=== PATIENT | female | born 1950 | race Caucasian/White ===

== ENCOUNTER 2023-09-13 08:59 | Emergency (ER) | payer MEDICARE, MEDICAID ==
[~2023-09-13] VITALS: Ht 157.5 cm; Wt 55.3 kg
[2023-09-13 09:27] VITALS: TEMP 98.4
[2023-09-13] MEDS ORDERED: normal saline 1000ML IV soln IV ONE (09:50)
--- NOTE | 2023-09-13 10:41 | NUR ---
Patient back from ct.
[2023-09-13] MEDS ORDERED: iohexol 350MG/ML 100ml bottle IV ONE (10:48)
--- NOTE | 2023-09-13 10:50 | NUR ---
Stroke alert cancelled by Dr. Lutz.Sabi/stroke RN at bedside.
[2023-09-13 10:54] LABS: BASOPHILS % (AUTO) 0.6 % (0-1); EOSINOPHILS # (AUTO) 0.1 X10'3 (0-0.9); EOSINOPHILS % (AUTO) 0.9 % (0-6); HEMATOCRIT 40.1 % (35.0-45.0); HEMOGLOBIN 13.5 g/dl (12.0-16.0); LYMPHOCYTES # (AUTO) 1.3 X10'3 (1.1-4.8); LYMPHOCYTES % (AUTO) 16.9 % (21-51); MEAN CORPUSCULAR HEMOGLOBIN 30.1 PG (27.0-31.0); MEAN CORPUSCULAR HGB CONC 33.7 g/dL (33.0-36.5); MEAN CORPUSCULAR VOLUME 89.3 FL (78-98); MEAN PLATELET VOLUME 8.1 FL (7.4-10.4); MONOCYTES # (AUTO) 0.5 X10'3 (0-0.9); MONOCYTES % (AUTO) 6.8 % (2-12); NEUTROPHILS # (AUTO) 5.9 X10'3 (1.8-7.7); NEUTROPHILS % (AUTO) 74.8 % (42-75); PLATELET COUNT 275 X10'3 (140-440); RED CELL DISTRIBUTION WIDTH 13.9 % (11.5-14.5); WHITE BLOOD COUNT 7.9 X10'3 (4.5-11.0)
[2023-09-13 11:06] LABS: BILIRUBIN,URINE NEGATIVE (Neg); CLARITY,URINE SLIGHTLY CLOUDY (Clear); COLOR,URINE YELLOW (Yellow); GLUCOSE, URINE NEGATIVE (Neg); KETONES,URINE 40 mg/dl (Neg); LEUKOCYTE ESTERASE ,URINE NEGATIVE (Neg); NITRITES, URINE NEGATIVE (Neg); OCCULT BLOOD,URINE TRACE-INTACT (Neg); PROTEIN,URINE NEGATIVE (Neg); UROBILINOGEN,URINE 0.2 E.U/dL (0.2-1.0)
[2023-09-13 11:09] LABS: PROTHROMBIN TIME 10.8 SECONDS (9.0-12.0)
[2023-09-13 11:15] LABS: UA COLLECTION TYPE CLN CATCH MIDSTREAM
[2023-09-13 11:19] LABS: SQUAMOUS EPITHELIAL CELL,UR FEW /LPF (FEW)
[2023-09-13 11:20] LABS: BACTERIA,URINE NONE SEEN /HPF (Neg); WBC,URINE 0-4 /HPF (0-4)
[2023-09-13] MEDS ORDERED: dextrose 5%-1/2 normal saline 1,000 ML IV ONE (11:20)
[2023-09-13 12:01] LABS: ALANINE AMINOTRANSFERASE 23 U/L (12-78); ALBUMIN 3.4 G/DL (3.4-5.0); ALBUMIN/GLOBULIN RATIO 0.9 (1.1-1.5); ALKALINE PHOSPHATASE 62 IU/L (46-116); ANION GAP 10 (8-16); ASPARTATE AMINO TRANSFERASE 14 U/L (10-37); BILIRUBIN,TOTAL 0.4 MG/DL (0.1-1.0); BLOOD UREA NITROGEN 13 MG/DL (7-18); BUN/CREATININE RATIO 16.7 (10.0-20.0); CHLORIDE 106 MMOL/L (99-107); CREATININE 0.78 MG/DL (0.40-0.90); GLUCOSE 96 MG/DL (70-104); POTASSIUM 3.7 MMOL/L (3.5-5.1); SODIUM 140 MMOL/L (135-145); TOTAL CARBON DIOXIDE 24.5 MMOL/L (24-32); eCRCL 52 ML/MIN; eGFR 73 ML/MIN
[2023-09-13 12:07] LABS: MAGNESIUM 1.8 MG/DL (1.5-2.4); PRO BRAIN NATRIURETIC PEPTIDE 198 PG/ML (0-125)
[2023-09-13 12:16] LABS: THYROID STIMULATING HORMONE < 0.01 ulU/ml (0.34-4.50)
--- NOTE | 2023-09-13 13:30 | NUR ---
Call to caregiver at this time, states she is on her way.
[2023-09-13 13:35] VITALS: BP 141/72; PULSE 107; RESP 25; O2SAT 98
--- NOTE | 2023-09-13 20:51 | NUR ---
PATIENT NOT DISCHARGED BY STAFF ON DAY SHIFT - REMOVED FROM ED BOARD.
== END 2023-09-13 20:51 | disposition home or self-care (01) ==
LOC: ER 08:59
DX: E86.0 Dehydration (principal); R10.9 Unspecified abdominal pain; R42 Dizziness and giddiness; R53.1 Weakness
CPT/HCPCS: 36415; 70450; 70496; 70498; 71045; 80053; 81001; 83605; 83735; 83880; 84145; 84443; 84484; 85025; 85610; 87040; 93005; 96360; 96361; 99285; J3490; J7030; Q9967